=== PATIENT | female | born 1980 | race African-American/Black ===

== ENCOUNTER 2016-08-11 10:43 | Emergency (ER) | payer OTHER ==
[~2016-08-11] VITALS: Ht 170.2 cm; Wt 136.1 kg
[~2016-08-11 10:43] MED LIST: AMBIEN 5 MG TABL5 M1 PO; AMOXICILLIN 50500 M1 PO; AMOXICILLIN500 M1 PO; ATIVAN1 MG PO; IBUPROFEN 600600 M1 PO; MACROBID 100 M100 M1 PO; NOHOMEMEDICATIONS
[2016-08-11 11:14] LABS: ABSOLUTE NEUTROPHILS 3.3 thou/uL (1.4-8.2); BASOPHILS 0.9 % (0.0-2.0); EOSINOPHILS 0.5 % (0.0-3.0); HEMOGLOBIN 14.2 gm/dL (12.0-15.0); LYMPHOCYTES 42.2 % (24.0-44.0); MCH 29.5 pg (26.0-34.0); MCHC 34.7 g/dL (28.0-37.0); MCV 85.1 fL (80.0-100.0); MONOCYTES 5.6 % (1.0-8.0); PLATELET COUNT 292 thou/uL (150-400); POLYS 50.8 % (36.0-66.0); RBC 4.82 mil/uL (4.20-5.00); RDW 12.5 % (10.5-14.5); WBC 6.5 thou/uL (4.0-11.0)
[2016-08-11 11:15] LABS: MANUAL DIFF NO
[2016-08-11 11:27] LABS: CALCIUM 9.2 mg/dL (8.5-10.1); CREATININE 0.9 mg/dL (0.6-1.0); POTASSIUM 3.6 mmol/L (3.5-5.1)
[2016-08-11] MEDS ORDERED: FLONASE 0.05%50 MCG NASAL (11:48)
[2016-08-11 12:15] VITALS: BP 128/88
== END 2016-08-11 12:15 | disposition home or self-care (01) ==
LOC: ER 10:43
PROVIDERS: Nurse Practitioner Family
DX: J34.89 Other specified disorders of nose and nasal sinuses (principal); R20.8 Other disturbances of skin sensation